=== PATIENT | female | born 1985 | race African-American/Black ===

== ENCOUNTER 2017-05-22 14:34 | Emergency (ER) | payer SELFPAY ==
[2017-05-22] MEDS ORDERED: Proparacaine 0.5% Opth 15 ML BOT ONE (14:48)
[2017-05-22] MEDS ORDERED: Fluorescein Opthalmic Strip ONE (14:48)
== END 2017-05-22 15:19 | disposition home or self-care (01) ==
LOC: ERS 14:34
DX: H10.9 Unspecified conjunctivitis (principal); F17.210 Nicotine dependence, cigarettes, uncomplicated
CPT/HCPCS: 99406

== ENCOUNTER 2017-05-23 13:04 | Emergency (ER) | payer SELFPAY ==
[2017-05-23] MEDS ORDERED: Proparacaine 0.5% Opth 15 ML BOT ONE (15:59)
== END 2017-05-23 16:30 | disposition home or self-care (01) ==
LOC: ERS 13:04
DX: H10.9 Unspecified conjunctivitis (principal); F17.210 Nicotine dependence, cigarettes, uncomplicated
CPT/HCPCS: 99283

== ENCOUNTER 2019-10-21 14:51 | Emergency (ER) | payer SELFPAY | END 2019-10-21 16:07 | disposition home or self-care (01) | LOC: ERS 14:51 | DX: H10.9 Unspecified conjunctivitis (principal); F17.210 Nicotine dependence, cigarettes, uncomplicated | CPT/HCPCS: 99282 ==

== ENCOUNTER 2024-08-11 18:08 | Emergency (ER) | payer BC, SELFPAY ==
[2024-08-11] MEDS ORDERED: Oxymetazoline HCl 0.05% (30 ML BOT) ONE (19:46)
[2024-08-11 20:20] LABS: #Basophils 0.04 10x3/uL (0.0-0.2); #Eosinophils Less than 0.03 10x3/uL (0.0-0.7); %Basophils 0.4 % (0.0-1.0); %Eosinophils 0.1 % (0.0-10.0); %Lymphocytes 10.9 % (21.0-51.0); %Monocytes 4.3 % (0.0-10.0); %Neutrophils 83.9 % (42.0-75.0); Hematocrit 39.1 % (36.0-47.0); Hemoglobin 12.7 g/dL (12.0-16.0); Mean Corpuscular HGB CONC 32.5 g/dL (32.0-36.0); Mean Corpuscular Hemoglobin 29.5 pg (27.0-31.0); Mean Corpuscular Volume 90.7 fL (78.0-98.0); Mean Platelet Volume 8.2 fL (7.4-10.4); Platelet Count 311 10x3/uL (130-400); RBC Distribution Width 18.4 % (11.5-14.5); Red Blood Cell (RBC) Count 4.31 mill/uL (4.20-5.40)
[2024-08-11 20:33] LABS: Prothrombin Time 13.6 sec (12.0-14.7)
[2024-08-11 20:34] LABS: PTT 29.3 sec (22.9-36.1)
[2024-08-11] MEDS ORDERED: Amoxicillin/Potassium Clav 875 MG TAB ONE (23:16)
== END 2024-08-11 23:43 | disposition home or self-care (01) ==
LOC: ERS 18:08
DX: R04.0 Epistaxis (principal); F17.210 Nicotine dependence, cigarettes, uncomplicated
CPT/HCPCS: 30905; 36415; 85025; 85610; 85730

== ENCOUNTER 2024-08-12 12:56 | Emergency (ER) | payer BC ==
[2024-08-12 14:39] LABS: #Basophils Less than 0.03 10x3/uL (0.0-0.2); %Basophils 0.3 % (0.0-1.0); %Eosinophils 0.7 % (0.0-10.0); %Monocytes 6.6 % (0.0-10.0); %Neutrophils 79.1 % (42.0-75.0); Hematocrit 36.7 % (36.0-47.0); Hemoglobin 12.2 g/dL (12.0-16.0); Mean Corpuscular HGB CONC 33.2 g/dL (32.0-36.0); Mean Corpuscular Hemoglobin 29.9 pg (27.0-31.0); Mean Platelet Volume 8.6 fL (7.4-10.4); Platelet Count 292 10x3/uL (130-400); RBC Distribution Width 18.3 % (11.5-14.5); Red Blood Cell (RBC) Count 4.08 mill/uL (4.20-5.40)
[2024-08-12 14:53] LABS: BHCG - Serum Negative (NEGATIVE); Pregs Control Background? CLEAR/WHITE (CLR/WHITE); Pregs Control Bar Appear? YES (CONTROL BAR)
[2024-08-12 14:54] LABS: Prothrombin Time 13.3 sec (12.0-14.7)
[2024-08-12 14:55] LABS: ALT (SGPT) 8 U/L (Less than 34); AST (SGOT) 35 U/L (11-34); Albumin 3.9 g/dL (3.1-4.5); Alkaline Phosphatase 85 U/L (40-110); Anion Gap 14 mmol/L (10-20); BUN (Urea Nitrogen) 4 mg/dL (7.0-18.7); Bilirubin, Total 0.3 mg/dL (0.3-1.2); Calc. Creatinine Clearance 0 mL/min (70-130); Calcium 8.9 mg/dL (7.8-10.44); Carbon Dioxide 23 mmol/L (22-29); Chloride 104 mmol/L (98-107); Estimated GFR 119; Globulin 4.5 g/dL (2.4-3.5); Glucose 105 mg/dL (70-105); PTT 29.9 sec (22.9-36.1); Potassium 3.3 mmol/L (3.5-5.1); Protein, Total 8.4 g/dL (6.0-8.3); Sodium 138 mmol/L (136-145)
== END 2024-08-12 16:37 | disposition home or self-care (01) ==
LOC: ERS 12:56
DX: R04.0 Epistaxis (principal); F17.210 Nicotine dependence, cigarettes, uncomplicated
CPT/HCPCS: 30300; 36415; 80053; 84703; 85025; 85610; 85730; 99283